=== PATIENT | male | born 1970 | race Two or more races ===

== ENCOUNTER 2024-02-24 12:11 | Emergency (ER) | payer SELFPAY ==
[2024-02-24] MEDS: Diphtheria,Pertussis(Acell),Tetanus Vaccine 0.5 ML Syringe IM ONE (13:34)
[2024-02-24] MEDS: Lidocaine 1% 5 ML VIAL INJECT ONE (13:37)
[2024-02-24] MEDS: Lidocaine 1% with EPINEPHrine 1:200,000 30 ML SDV INJECT ONE (14:29)
[2024-02-24] MEDS: CEFTRIAXONE IM ONE (14:41)
[2024-02-24] MEDS: LIDOCAINE 1% IM ONE (14:41)
== END 2024-02-24 15:04 | disposition home or self-care (01) ==
LOC: MW.ED 12:11
DX: S62.631B Displaced fracture of distal phalanx of left index finger, initial encounter for open fracture (principal); Z88.6 Allergy status to analgesic agent; Z75.8 Other problems related to medical facilities and other health care; Z23 Encounter for immunization; W22.8XXA Striking against or struck by other objects, initial encounter
CPT/HCPCS: 73140; 90471; 90715; 96372; 99283; J0696; J3490